=== PATIENT | male | born 1935 | race Caucasian/White ===

== ENCOUNTER 2018-09-05 10:23 | Emergency (ER) | payer OTHER ==
[2018-09-05 10:47] LABS: Protime INR 1.09
[2018-09-05] MEDS ORDERED: ONDANSETRON 4 MG/2 ML VIAL ONE (10:47)
[2018-09-05 10:50] LABS: Absolute Lymphocytes (CBC) 2.2 K/uL (0.7-4.9); Basophils % 0.7 % (0-1.3); Hematocrit 41.4 % (39.6-49.0); Lymphocytes % 31.1 % (15.3-44.8); MPV 8.9 fL (7.6-11.3); RBC Red Blood Cell Count 4.44 M/uL (4.33-5.43)
[2018-09-05] MEDS ORDERED: FENTANYL CITR 100 MCG/2 ML ONE (10:52)
[2018-09-05] MEDS ORDERED: HYDROMORPHONE HCL 1 MG/ML INJ ONE ×3 (11:08→11:35)
[2018-09-05] MEDS ORDERED: HEPARIN/D5W 25,000 UNIT/500 ML BAG IV ONE (11:14)
[2018-09-05] MEDS ORDERED: HEPARIN 5000 UNIT/ML 1 ML VIAL ONE (11:14)
--- NOTE | 2018-09-05 11:19 | ER ---
Nurse's Notes [facility] Name: Osmin Quezada Age: 83 yrs Sex: Male : 1935 Arrival Date: 09/05/2018 Time: 10:31 Bed 7 Private MD: Diagnosis: Arterial embolism and thrombosis Presentation: 09/05 10:28 Presenting complaint: EMS states: pt states around 9am he started having numbness and tw2 tingling to both legs, he has b/l LE ulcers, pt c/o pain we noticed significant color changes to his lower extremities from the time we got him until now, we gave 4 mg zofran pt c/o pain and nauseousness. Transition of care: patient was not received from another setting of care. Onset of symptoms was September 05, 2018. Risk Assessment: Do you want to hurt yourself or someone else? Patient reports no desire to harm self or others. Initial Sepsis Screen: Does the patient meet any 2 criteria? No. Patient's initial sepsis screen is negative. Does the patient have a suspected source of infection? No. Patient's initial sepsis screen is negative. Care prior to arrival: Medication(s) given: zofran 4 mg, IV initiated. 20 GA, in the right wrist. 10:28 Method Of Arrival: EMS: [facility] tw2 10:28 Acuity: JESSIE 1 tw2 Triage Assessment: 10:28 General: Appears uncomfortable, Behavior is cooperative. Pain: Complains of pain in tw2 right leg and left leg. Derm: Skin is dusky, mottled, with blueish color to b/l legs, providers Dr. Florez and ALEXEY Shepherd at bedside at this time. Historical: - Allergies: 10:37 No Known Drug Allergies; sv - Home Meds: 10:47 Novolog 100 unit/mL Sub-Q soln 15 15-20 units [Active]; bumetanide 2 mg Oral tab 1 tab tw2 2 times per day [Active]; Flomax 0.4 mg Oral cp24 1 cap once daily [Active]; dutestaride 0.5 mg po daily [Active]; Neurontin 300 mg Oral cap 1 cap 3 times per day [Active]; levothyroxine 115 mcg tab 1 tab once daily [Active]; Niaspan 250 mg Oral [Active]; trazodone 100 mg Oral tab 1 tab 3 times per day [Active]; Ecotrin 325 mg Oral TbEC 1 tab once daily [Active]; Klor-Con 10 10 mEq Oral TbER 1 tab once daily [Active]; Fish Oil 1200 mg oral liqd [Active]; Allopurinol 50 mg Oral [Active]; clonazepam 0.5 mg Oral tab 1 tab 3 times per day [Active]; Pletal 100 mg Oral tab 1 tab 2 times per day [Active]; Multiple Vitamins oral tab [Active]; - PMHx: 10:47 Diabetes - IDDM; tw2 - Immunization history:: Adult Immunizations. - Social history:: Smoking status: . - Ebola Screening: : Patient denies travel to an Ebola-affected area in the 21 days before illness onset. Screenin:37 Abuse screen: Denies threats or abuse. Denies injuries from another. Nutritional sv screening: No deficits noted. Tuberculosis screening: No symptoms or risk factors identified. Fall Risk No fall in past 12 months (0 pts). No secondary diagnosis (0 pts). IV access (20 points). Ambulatory Aid- None/Bed Rest/Nurse Assist (0 pts). Gait- Normal/Bed Rest/Wheelchair (0 pts) Mental Status- Oriented to own ability (0 pts). Total Mcguire Fall Scale indicates No Risk (0-24 pts). Assessment: 10:32 General: Appears uncomfortable, obese, Behavior is anxious. Pain: Complains of pain in tw2 right leg and left leg. Neuro: Level of Consciousness is awake, alert, obeys commands, Oriented to person, place, time, situation. Cardiovascular: Heart tones S1 S2 Capillary refill is > 3 seconds. Respiratory: Airway is patent Respiratory effort is even, unlabored, Respiratory pattern is regular, symmetrical, Breath sounds are clear bilaterally. GI: Abdomen is round distended, obese, Bowel sounds diminished in right upper quadrant, left upper quadrant, right lower quadrant and left lower quadrant. 10:36 Reassessment: US at the bedside. sv 11:17 Reassessment: pt family at bedside at this time, in pain, pt medicated as ordered, pt tw2 still in pain, provider ALEXEY Funes to discuss POC with family and pt at this time. 11:23 : No signs and/or symptoms were reported regarding the genitourinary system. EENT: No tw2 signs and/or symptoms were reported regarding the EENT system. Derm: Skin is dry, Skin is mottled, bluish Skin temperature is cool. Musculoskeletal: Range of motion: limited in left hip, left knee, left ankle, right hip, right knee and right ankle. 11:48 Reassessment: Patient and/or family updated on plan of care and expected duration. Pain tw2 level reassessed. pt medicated as ordered, pt and family educated as to expected time of arrival for lifeflight, pt agreeable. 11:59 Reassessment: Life flight with pt at this time, family at bedside as well. tw2 Vital Signs: 10:37 BP 149 / 60; Pulse 56; Resp 17; Temp 97.6(O); Pulse Ox 99% on R/A; Pain 10/10; tw2 10:54 Weight 97.98 kg (R); tw2 11:19 BP 156 / 68; Pulse 68; Resp 15; Pulse Ox 98% on R/A; tw2 11:48 BP 140 / 59; Pulse 70; Resp 20; Pulse Ox 99% on 2 lpm NC; tw2 12:00 BP 140 / 59; Pulse 58; Resp 16; Pulse Ox 100% on 2 lpm NC; tw2 10:54 pt states "i weighted this morning" tw2 ED Course: 10:28 Arm band placed on. tw2 10:31 Patient arrived in ED. tw2 10:31 Marin Dickinson PA is PHCP. jr8 10:31 Kash Florez MD is Attending Physician. jr8 10:34 Triage completed. tw2 10:37 Patient has correct armband on for positive identification. Bed in low position. Call sv light in reach. alarm security or surveillance monitor on. Pulse ox on. NIBP on. 10:37 initiated a transfer with Jackie at the [facility]. eb 10:40 Annia Long, DEB is Primary Nurse. tw2 10:41 [facility] denied patient in transfer they are at capacity. eb 10:42 Radiology exam delayed due to ultrasound at bedside. jr1 10:42 initiated a transfer with Keerthi at the [facility] transfer center. eb 10:53 EKG done, by ED staff. sm3 10:55 connected Hai Zendejas the cardiovascular surgeon performance improvement consultant for [facility] with Marin BLACKBURN eb for patient transfer consultation. 10:56 US Aorta Ivc Iliacs Complete In Process Unspecified. EDMS 11:08 connected the remote ruby on rails developer performance improvement consultant for [facility] with Marin BLACKBURN for patient transfer eb consultation. 11:14 Inserted saline lock: 22 gauge in right antecubital area, using aseptic technique. tw2 Maintain EMS IV. Dressing intact. Good blood return noted. Site clean \\T\\ dry. Gauge \\T\\ site: 20 g right wrist. 11:21 administrative approval given by Rosario Coreas RN/ patient is going to [facility] [address] A Bed 6A03/ Justino Goins has accepted the patient in transfer/ report to be called to [phone]. 11:[address] [facility] flight spoke with Melinda - she's given the ETA of 23 eb minutes before the helicopter gets here. 11:40 XRAY Chest (1 view) In Process Unspecified. EDMS 11:49 Inserted saline lock: 20 gauge in right forearm, using aseptic technique. tw2 12:01 No provider procedures requiring assistance completed. Patient transferred, IV remains tw2 in place. Administered Medications: 10:30 Drug: Zofran 4 mg Route: IVP; Site: right wrist; tw2 11:03 Follow up: Response: No adverse reaction; Nausea unchanged tw2 10:37 Drug: fentaNYL (PF) 50 mcg Route: IVP; Site: right wrist; tw2 11:40 Follow up: Response: No adverse reaction; Pain is unchanged, physician notified tw2 10:54 Drug: Dilaudid 1 mg Route: IVP; Site: right wrist; tw2 11:03 Follow up: Response: No adverse reaction; Pain is unchanged, physician notified tw2 11:02 Drug: Heparin (DVT/PE- Bolus per protocol) - HEParin 80 units/kg {Co-Signature: hb tw2 (Nurys Ellsworth RN).} Route: IVP; Site: right wrist; 11:48 Follow up: Response: No adverse reaction tw2 11:02 Drug: Heparin (DVT/PE Drip) 18 units/kg/hr - (HEParin 57932 units, D5W 500 ml) tw2 {Co-Signature: hb (Nurys Ellsworth RN).} Route: IV; Rate: calculated rate; Site: right wrist; 12:00 Follow up: IV Status: Infusion continued upon transfer tw2 11:14 Drug: Phenergan 6.25 mg Route: IVP; Site: right antecubital; tw2 11:48 Follow up: Response: No adverse reaction; Nausea is decreased tw2 11:16 Drug: Dilaudid 1 mg Route: IVP; Site: right antecubital; tw2 11:47 Follow up: Response: No adverse reaction; Pain is unchanged, physician notified tw2 11:44 Drug: Dilaudid 1 mg Route: IVP; Site: right antecubital; tw2 12:00 Follow up: Response: Pain is decreased tw2 11:46 Drug: Potassium Chloride 20 mEq Route: IV; Rate: calculated rate; Site: right tw2 antecubital; 12:00 Follow up: IV Status: Infusion continued upon transfer tw2 11:47 Drug: NS 0.9% 250 ml Route: IV; Rate: 250 bolus; Site: right antecubital; tw2 12:00 Follow up: IV Status: Infusion continued upon transfer tw2 11:52 CANCELLED (Duplicate Order): Potassium Chloride 20 mEq IV at calculated rate once; tw2 administer over 1-2 hours Outcome: 11:18 ER care complete, transfer ordered by MD. jaramillo 12:01 Transferred by helicopter to [facility]. tw2 12:01 critical 12:01 Instructed on the need for transfer. 12:01 Patient left the ED. tw2 Signatures: Dispatcher [employer] EDLenore Abreu, DEB BOYD Rosa Briggs jr1 Marin Dickinson PA PA jr8 Annia Long RN RN tw2 Keerthi Moffett Shakira 3 Nurys Ellsworth RN Corrections: (The following items were deleted from the chart) 11:24 10:32 GI: Abdomen is round distended, obese, tw2 tw2 11:51 10:28 Presenting complaint: EMS states: pt states around 9am he started having numbness tw2 and tingling to both legs, he has b/l LE ulcers, we noticed significant color changes to his lower extremities from the time we got him until now, we gave 4 mg zofran pt c/o pain and nauseousness tw2
--- NOTE | 2018-09-05 11:19 | EDPHYS ---
Physician Documentation [facility] Name: Osmin Quezada Age: 83 yrs Sex: Male : 1935 Arrival Date: 09/05/2018 Time: 10:31 Bed 7 Private MD: ED Physician Kash Florez HPI: 09/05 10:35 This 83 yrs old Male presents to ER via EMS with complaints of Leg Pain. jr8 10:35 The patient presents with pain, numbness, weakness. The complaints affect the right leg jr8 and left leg. Context: The problem was sustained at home, resulted from an unknown cause. Onset: The symptoms/episode began/occurred acutely, today. Modifying factors: The symptoms are alleviated by nothing. the symptoms are aggravated by nothing. Associated signs and symptoms: Pertinent positives: nausea, numbness, weakness. Severity of symptoms: At their worst the symptoms were severe, in the emergency department the symptoms are unchanged. It is unknown whether or not the patient has had similar symptoms in the past. The patient has not recently seen a physician. Patient stated that he was resting at home when he had sudden onset pain, weakness, numbness, to lower extremities. EMS called at that time. While en route to ED EMS noted abrupt color change in lower extremities bilaterally. Patient continues to have extreme pain, numbness, and weakness in both legs. Historical: - Allergies: 10:37 No Known Drug Allergies; sv - Home Meds: 10:47 Novolog 100 unit/mL Sub-Q soln 15 15-20 units [Active]; bumetanide 2 mg Oral tab 1 tab tw2 2 times per day [Active]; Flomax 0.4 mg Oral cp24 1 cap once daily [Active]; dutestaride 0.5 mg po daily [Active]; Neurontin 300 mg Oral cap 1 cap 3 times per day [Active]; levothyroxine 115 mcg tab 1 tab once daily [Active]; Niaspan 250 mg Oral [Active]; trazodone 100 mg Oral tab 1 tab 3 times per day [Active]; Ecotrin 325 mg Oral TbEC 1 tab once daily [Active]; Klor-Con 10 10 mEq Oral TbER 1 tab once daily [Active]; Fish Oil 1200 mg oral liqd [Active]; Allopurinol 50 mg Oral [Active]; clonazepam 0.5 mg Oral tab 1 tab 3 times per day [Active]; Pletal 100 mg Oral tab 1 tab 2 times per day [Active]; Multiple Vitamins oral tab [Active]; - PMHx: 10:47 Diabetes - IDDM; tw2 - Immunization history:: Adult Immunizations. - Social history:: Smoking status: . - Ebola Screening: : Patient denies travel to an Ebola-affected area in the 21 days before illness onset. ROS: 10:35 Eyes: Negative for injury, pain, redness, and discharge, ENT: Negative for injury, jr8 pain, and discharge, Neck: Negative for injury, pain, and swelling, Cardiovascular: Negative for chest pain, palpitations, and edema, Respiratory: Negative for shortness of breath, cough, wheezing, and pleuritic chest pain, Back: Negative for injury and pain. 10:35 Abdomen/GI: Positive for nausea, Negative for abdominal pain, vomiting, diarrhea, abdominal cramps, abdominal distension. 10:35 MS/extremity: Positive for pain, paresthesias, of the right leg and left leg. 10:35 Skin: Positive for discoloration and mottling of both lower extremities . 10:35 Neuro: Positive for numbness, weakness, of the right leg and left leg, Negative for altered mental status, dizziness, headache, loss of consciousness, seizure activity, speech changes, syncope, near syncope. Exam: 10:35 Eyes: Pupils equal round and reactive to light, extra-ocular motions intact. Lids and jr8 lashes normal. Conjunctiva and sclera are non-icteric and not injected. Cornea within normal limits. Periorbital areas with no swelling, redness, or edema. ENT: Nares patent. No nasal discharge, no septal abnormalities noted. Tympanic membranes are normal and external auditory canals are clear. Oropharynx with no redness, swelling, or masses, exudates, or evidence of obstruction, uvula midline. Mucous membranes moist. Neck: Trachea midline, no thyromegaly or masses palpated, and no cervical lymphadenopathy. Supple, full range of motion without nuchal rigidity, or vertebral point tenderness. No Meningismus. Respiratory: Lungs have equal breath sounds bilaterally, clear to auscultation and percussion. No rales, rhonchi or wheezes noted. No increased work of breathing, no retractions or nasal flaring. Abdomen/GI: Soft, non-tender, with normal bowel sounds. No distension or tympany. No guarding or rebound. No evidence of tenderness throughout. Back: No spinal tenderness. No costovertebral tenderness. Full range of motion. Neuro: Awake and alert, GCS 15, oriented to person, place, time, and situation. Cranial nerves II-XII grossly intact. 5/5 strength upper extremities. Unable to move lower extremities. Complete loss of sensation to lower extremities present. Gait not tested 10:35 Cardiovascular: Rate: normal, Rhythm: regular, Pulses: Pulses are 1+ in right radial artery and left radial artery. unable to palpate at the femoral level or dorsal pedal level , Edema: is not appreciated, JVD: is not appreciated. 10:35 Musculoskeletal/extremity: Patient has normal upper extremities with cool, mottled, lower extremities. Patient unable to move lower extremities and with non palpable lower extremity pulses from femoral level down . Vital Signs: 10:37 BP 149 / 60; Pulse 56; Resp 17; Temp 97.6(O); Pulse Ox 99% on R/A; Pain 10/10; tw2 10:54 Weight 97.98 kg (R); tw2 11:19 BP 156 / 68; Pulse 68; Resp 15; Pulse Ox 98% on R/A; tw2 11:48 BP 140 / 59; Pulse 70; Resp 20; Pulse Ox 99% on 2 lpm NC; tw2 12:00 BP 140 / 59; Pulse 58; Resp 16; Pulse Ox 100% on 2 lpm NC; tw2 10:54 pt states "i weighted this morning" tw2 MDM: 10:31 Patient medically screened. 8 11:02 Data reviewed: vital signs, nurses notes, lab test result(s), EKG, radiologic studies, jr8 plain films, ultrasound. Data interpreted: Pulse oximetry: on room air is 99 %. Interpretation: normal. Counseling: I had a detailed discussion with the patient and/or guardian regarding: the historical points, exam findings, and any diagnostic results supporting the discharge/admit diagnosis, lab results, radiology results, the need to transfer to another facility, for higher level of care, [facility] does not immediately have the required specialist. ED course: After talking to Dr. Valles about case and severity of situation we advised patient and that there is about 50% mortality rate with this particular condition. That we can either emergently fly him to attempt surgery or keep him comfortable here. Patient wants to attempt surgery at this time if possible. 09/05 10:32 Order name: Basic Metabolic Panel; Complete Time: 11:52 09/05 10:32 Order name: CBC with Diff; Complete Time: 10:53 09/05 10:32 Order name: LFT's; Complete Time: :09/05 10:32 Order name: Magnesium; Complete Time: 11:09/05 10:32 Order name: NT PRO-BNP; Complete Time: :09/05 10:32 Order name: PT-INR; Complete Time: 11:09/05 10:32 Order name: Troponin (emerg Dept Use Only); Complete Time: :09/05 10:32 Order name: XRAY Chest (1 view); Complete Time: 20:39 09/05 10:32 Order name: US Aorta Ivc Iliacs Complete; Complete Time: 11:09/05 10:32 Order name: EKG; Complete Time: 10:35 09/05 10:32 Order name: Cardiac monitoring; Complete Time: 10:37 09/05 10:32 Order name: EKG - Nurse/Tech; Complete Time: 11:17 09/05 10:32 Order name: IV Saline Lock; Complete Time: 10:37 09/05 10:32 Order name: Labs collected and sent; Complete Time: 10:37 09/05 10:32 Order name: O2 Per Protocol; Complete Time: 10:37 09/05 10:32 Order name: O2 Sat Monitoring; Complete Time: 10:37 Administered Medications: 10:30 Drug: Zofran 4 mg Route: IVP; Site: right wrist; tw2 11:03 Follow up: Response: No adverse reaction; Nausea unchanged tw2 10:37 Drug: fentaNYL (PF) 50 mcg Route: IVP; Site: right wrist; tw2 11:40 Follow up: Response: No adverse reaction; Pain is unchanged, physician notified tw2 10:54 Drug: Dilaudid 1 mg Route: IVP; Site: right wrist; tw2 11:03 Follow up: Response: No adverse reaction; Pain is unchanged, physician notified tw2 11:02 Drug: Heparin (DVT/PE- Bolus per protocol) - HEParin 80 units/kg {Co-Signature: byron tw2 (Nurys Ellsworth RN).} Route: IVP; Site: right wrist; 11:48 Follow up: Response: No adverse reaction tw2 11:02 Drug: Heparin (DVT/PE Drip) 18 units/kg/hr - (HEParin 38012 units, D5W 500 ml) tw2 {Co-Signature: hb (Nurys Ellsworth RN).} Route: IV; Rate: calculated rate; Site: right wrist; 12:00 Follow up: IV Status: Infusion continued upon transfer tw2 11:14 Drug: Phenergan 6.25 mg Route: IVP; Site: right antecubital; tw2 11:48 Follow up: Response: No adverse reaction; Nausea is decreased tw2 11:16 Drug: Dilaudid 1 mg Route: IVP; Site: right antecubital; tw2 11:47 Follow up: Response: No adverse reaction; Pain is unchanged, physician notified tw2 11:44 Drug: Dilaudid 1 mg Route: IVP; Site: right antecubital; tw2 12:00 Follow up: Response: Pain is decreased tw2 11:46 Drug: Potassium Chloride 20 mEq Route: IV; Rate: calculated rate; Site: right tw2 antecubital; 12:00 Follow up: IV Status: Infusion continued upon transfer tw2 11:47 Drug: NS 0.9% 250 ml Route: IV; Rate: 250 bolus; Site: right antecubital; tw2 12:00 Follow up: IV Status: Infusion continued upon transfer tw2 11:52 CANCELLED (Duplicate Order): Potassium Chloride 20 mEq IV at calculated rate once; tw2 administer over 1-2 hours Disposition: 09/06 06:45 Co-signature as Attending Physician, Kash Florez MD I agree with the assessment and kdr plan of care. Disposition: 09/05/18 11:18 Transfer ordered to [facility]. Diagnosis is Arterial embolism and thrombosis. - Reason for transfer: Higher level of care. - Accepting physician is Dr. Roro Nunez. - Condition is Serious. - Problem is new. - Symptoms are unchanged. Signatures: Dispatcher [employer] EDMS Lenore Castellanos, RN RN Kash Florez MD MD [facility] Marin Dickinson PA PA jr8 Nurys Ellsworth RN RN Annia Long RN RN tw2 Nurys Ellsworth RN Corrections: (The following items were deleted from the chart) 09/05 11:10 11:02 ED course: After talking to Dr. Valles about case and severity of situation we jr8 advised patient and that there is about 50% mortality rate with this particular condition. That we can either emergently fly him to attempt surgery or keep him comfortable here . jr8 11:27 11:18 09/05/2018 11:18 Transfer ordered to [facility]. Diagnosis is jr8 Arterial embolism and thrombosis. Reason for transfer: Higher level of care. Accepting physician is Dr. Valles. Condition is Serious. Problem is new. Symptoms are unchanged. jr8 11:52 11:37 Potassium Chloride 20 mEq IV at calculated rate once; administer over 1-2 hours tw2 ordered. hb 12:01 11:27 09/05/2018 11:18 Transfer ordered to [facility]. Diagnosis is tw2 Arterial embolism and thrombosis. Reason for transfer: Higher level of care. Accepting physician is Dr. Valles, Dr. Read. Condition is Serious. Problem is new. Symptoms are unchanged. jr8
[2018-09-05] MEDS ORDERED: PROMETHAZINE 25 MG/ML VIAL ONE (11:23)
[2018-09-05 11:35] LABS: ALT/SGPT 10 U/L (12-78); AST/SGOT 13 U/L (15-37); Albumin 2.7 g/dL (3.4-5.0); Alkaline Phosphatase 88 U/L (45-117); BUN Blood Urea Nitrogen 39 mg/dL (7-18); Bicarbonate 29 mmol/L (21-32); Bilirubin Direct 0.3 mg/dL (0-0.2); Bilirubin Total 0.8 mg/dL (0.2-1.0); Glucose Level 169 mg/dL (74-106); NT PRO-BNP 1351 pg/mL (<450); Protein, Total 5.8 g/dL (6.4-8.2); Sodium Level 145 mmol/L (136-145); Troponin (Emerg Dept Use Only) < 0.02 ng/mL (0.0-0.045)
[2018-09-05 11:37] LABS: Potassium 2.6 mmol/L (3.5-5.1)
--- NOTE | 2018-09-05 11:41 | RAD REPORT ---
EXAM DESCRIPTION: US - Aorta Ivc Iliacs Complete - 09/05/2018 10:56 am CLINICAL HISTORY: Abdominal pain/aortic aneurysm COMPARISON: None FINDINGS: Evaluation is somewhat limited secondary to overlying bowel gas An abdominal aortic aneurysm is not seen. No flow is seen within the mid to distal abdominal aorta. Flow within the visualized common and external iliac arteries diminished. Flow within right and left common femoral artery is diminished IMPRESSION: No flow seen within the mid to distal abdominal aorta. CT angiogram would be helpful for further evaluation. A preliminary report was given to the referring provider at the completion of the exam
--- NOTE | 2018-09-05 11:51 | RAD REPORT ---
EXAM DESCRIPTION: Teagan Single View09/05/2018 11:42 am CLINICAL HISTORY: Shortness of breath COMPARISON: None FINDINGS: The lungs appear clear of acute infiltrate. The heart is mildly enlarged. Postsurgical changes involve the chest. One of the sternal wires is broken IMPRESSION: No acute abnormalities displayed
[2018-09-05] MEDS ORDERED: KCL 20 MEQ/100 mL IVPB 20 MEQ/100 ML BAG IV ONE (11:58)
[2018-09-05] MEDS ORDERED: NA CHLORIDE 0.9% 250 ML ONE (11:58)
--- NOTE | 2018-09-06 06:43 | EKG ---
Test Date: 2018-09-05 Test Time: 10:53:38 Cold Meat Chef: SUBHA MEASUREMENT RESULTS: Intervals: Rate: 67 AK: QRSD: 152 QT: 574 QTc: 606 [place]: P: AK: QRS: -74 T: -45 INTERPRETIVE STATEMENTS: Atrial fibrillation with premature ventricular or aberrantly conducted complexes Left axis deviation Right bundle branch block Abnormal ECG Compared to ECG 09/20/2009 15:00:45 Ventricular premature complex(es) now present Left-axis deviation now present Sinus tachycardia no longer present Atrial premature complex(es) no longer present Left anterior fascicular block no longer present Bifascicular block no longer present Myocardial infarct finding no longer present Electronically Signed On 09-06-18 06:41:46 CDT by Madhu Ro
== END 2018-09-05 12:01 | disposition short-term general hospital (02) ==
LOC: ER 10:23
DX: I74.3 Embolism and thrombosis of arteries of the lower extremities (principal); E11.9 Type 2 diabetes mellitus without complications; Z79.4 Long term (current) use of insulin
CPT/HCPCS: 93005; 85025; 80048; 36415; 83735; 85610; 80076; 84484; 83880; 71045; 93978; 99291; J2550; J1644 ×2; J3010; J1170 ×3; J2405; 96365; 96375